=== PATIENT | female | born 1995 | race Caucasian/White ===

== ENCOUNTER 2020-11-14 08:25 | Inpatient (IN) | payer OTHER ==
[2020-11-14] MEDS: ELECTROLYTE-148 SOLN 1,000 ML IV SCH ×3 (09:30→23:30)
[2020-11-14] MEDS ORDERED: PROMETHAZINE HCL 25 MG/1 ML VIAL IVPB ONE (09:38)
[2020-11-14] MEDS ORDERED: BUTORPHANOL TARTRATE 1 MG/ML VIAL IVPB PRN ×2 (09:38)
[2020-11-14 09:59] VITALS: BMI 30.9
[2020-11-14] MEDS ORDERED: DINOPROSTONE 10 MG VAGINAL SUPPOSITORY VG ONE (10:00)
[2020-11-14 10:01] LABS: BASO % 0.4 % (0-2.0); EOS % 0.9 % (0-4.5); HEMATOCRIT 38.3 % (32.4-45.2); LYMPH % 22.7 % (8-40); MCH 27.6 pg (25.7-33.7); MEAN CELL VOLUME 81.2 fl (80-96); MEAN PLT VOLUME 9.5 fl (7.5-11.1); MONO % 7.1 % (3.8-10.2); NEUT % 68.9 % (42.8-82.8); PLATELET COUNT 213 10^3/uL (134-434); RBC 4.72 M/mm3 (3.60-5.2); RDW 15.7 % (11.6-15.6); WHITE BLOOD COUNT 8.6 K/mm3 (4.0-10.0)
[2020-11-14 10:10] LABS: INR 0.92 (0.83-1.09); PROTHROMBIN TIME (PATIENT) 11.3 SEC (9.7-13.0)
[2020-11-14 10:12] LABS: ACTIVATED PTT 26.6 SECONDS (25.2-36.5)
[2020-11-14 10:24] LABS: BLOOD UREA NITROGEN 12.3 mg/dL (7-18)
[2020-11-14 10:27] LABS: CREATININE 0.4 mg/dL (0.55-1.3)
[2020-11-14] MEDS ORDERED: OXYTOCIN 30 UNITS in 0.9% NS 30 UNIT/500 ML INFUS.BAG IVPB ONE (10:39)
[2020-11-14] MEDS ORDERED: OXYTOCIN 30 UNITS in 0.9% NS 30 UNIT/500 ML INFUS.BAG IVPB SCH (10:45)
[2020-11-15] MEDS ORDERED: BUTORPHANOL TARTRATE 2 MG/ML VIAL ONE (03:00)
[2020-11-15] MEDS ORDERED: PROMETHAZINE HCL 25 MG/1 ML VIAL ONE (03:00)
[2020-11-15] MEDS ORDERED: FENTANYL/BUPIVACAINE/NS/PF - PCEA - 50 ML DISP.SYRIN EP ONE ×3 (03:07→12:17)
[2020-11-15] MEDS ORDERED: NALOXONE HCL 0.4 MG/ML VIAL IVPUSH PRN (03:35)
[2020-11-15] MEDS ORDERED: FENTANYL/BUPIVACAINE/NS/PF - PCEA - 50 ML DISP.SYRIN EP SCH (03:45)
[2020-11-15] MEDS: ELECTROLYTE-148 SOLN 1,000 ML IV SCH ×2 (06:50→20:34)
[2020-11-15] MEDS ORDERED: BUPIVACAINE HCL/PF 0.25% (2.5MG/ML) 10 ML VIAL ONE (13:52)
[2020-11-15] MEDS ORDERED: OXYTOCIN 20 UNITS in 0.9% NS 20 UNIT/1,000 ML INFUS.BAG IV ONE ×2 (13:54→15:39)
[2020-11-15] MEDS ORDERED: LIDOCAINE HCL 1% PRESERVATIVE FREE - 30ML VIAL ONE (13:55)
[2020-11-15] MEDS ORDERED: OXYTOCIN 10 UNITS/ML VIAL ONE (14:41)
[2020-11-15] MEDS ORDERED: oxyCODONE HCL 5 MG TABLET PO PRN (14:48)
[2020-11-15] MEDS ORDERED: WITCH HAZEL 50% (TUCKS) 40 PAD/JAR PAD TP PRN (14:48)
[2020-11-15] MEDS ORDERED: BENZOCAINE 20% 57 GM BOTTLE TP PRN (14:48)
[2020-11-15] MEDS ORDERED: BENZOCAINE 28 GM HEMORRHOIDAL OINTMENT TP PRN (14:48)
[2020-11-15] MEDS ORDERED: BISACODYL 10 MG SUPP.RECT RC PRN (14:48)
[2020-11-15] MEDS ORDERED: ACETAMINOPHEN 325 MG TABLET (FP) PO PRN (14:48)
[2020-11-15] MEDS ORDERED: METHYLERGONOVINE MALEATE 0.2 MG/1 ML AMP IM PRN (14:48)
[2020-11-15] MEDS ORDERED: OXYTOCIN 20 UNITS in 0.9% NS 20 UNIT/1,000 ML INFUS.BAG IV SCH (15:00)
[2020-11-15 15:51] LABS: CORD BASE EXCESS -7.1 mmol/L (0-2); CORD HCO3 18.9 mmHg (20-29); CORD PCO2 39.8 mmHg (30-78); CORD pH 7.294 (7.14-7.44)
[2020-11-15] MEDS: IBUPROFEN 600 MG TABLET (FP) PO PRN (16:40)
[2020-11-15] MEDS: FERROUS SO4 325 MG TABLET (FP) PO SCH (16:41)
[2020-11-15] MEDS ORDERED: ZOLPIDEM TARTRATE 5 MG TABLET PO PRN (23:12)
[2020-11-16] MEDS: IBUPROFEN 600 MG TABLET (FP) PO PRN (02:15)
[2020-11-16 07:05] LABS: BASO % 0.3 % (0-2.0); EOS % 0.3 % (0-4.5); HEMATOCRIT 27.2 % (32.4-45.2); HEMOGLOBIN 9.1 GM/dL (10.7-15.3); LYMPH % 19.3 % (8-40); MCH 27.3 pg (25.7-33.7); MCHC 33.3 g/dl (32.0-36.0); MEAN CELL VOLUME 81.9 fl (80-96); MEAN PLT VOLUME 9.3 fl (7.5-11.1); MONO % 6.8 % (3.8-10.2); NEUT % 73.3 % (42.8-82.8); PLATELET COUNT 173 10^3/uL (134-434); RBC 3.32 M/mm3 (3.60-5.2); RDW 15.7 % (11.6-15.6); WHITE BLOOD COUNT 11.4 K/mm3 (4.0-10.0)
[2020-11-16] MEDS: FERROUS SO4 325 MG TABLET (FP) PO SCH ×3 (08:23→17:09)
[2020-11-16] MEDS: PRENATAL VITAMINS W/ FOLIC ACID TABLET (FP) PO SCH (09:32)
[2020-11-16] MEDS ORDERED: FLU VACC QS2021-22(6MOS UP)/PF 60 MCG/0.5 ML SYRINGE IM ONE (10:00)
[2020-11-16] MEDS ORDERED: SENNOSIDES/DOCUSATE COMBO (SENNA PLUS) TABLET (UD) PO PRN (22:00)
[2020-11-17] MEDS: FERROUS SO4 325 MG TABLET (FP) PO SCH ×2 (09:00→14:01)
[2020-11-17] MEDS: PRENATAL VITAMINS W/ FOLIC ACID TABLET (FP) PO SCH (09:27)
[2020-11-17 10:02] VITALS: BP 108/65; PULSE 75; TEMP 98.3
== END 2020-11-17 12:20 | disposition home or self-care (01) | DRG 560 ==
LOC: JLDR 08:25 → J3W 11-15 16:15
PROVIDERS: ADMIT Obstetrics & Gynecology; ATTEND Obstetrics & Gynecology
PROC: 10E0XZZ Delivery of Products of Conception, External Approach (ICD-10-PCS; principal; 2020-11-15)
PROC: 0KQM0ZZ Repair Perineum Muscle, Open Approach (ICD-10-PCS; 2020-11-15)
DX: O34.33 Maternal care for cervical incompetence, third trimester (principal); O99.214 Obesity complicating childbirth; E66.9 Obesity, unspecified; O70.1 Second degree perineal laceration during delivery; Z3A.39 39 weeks gestation of pregnancy; Z37.0 Single live birth
CPT/HCPCS: 36415; 36600; 59409; 80048; 82803; 85025; 85610; 85730; 86780; 86850; 86900; 86901; 90686; C9803; G0008; U0003; U0005

== ENCOUNTER 2023-05-29 20:41 | Emergency (ER) | payer OTHER ==
[2023-05-29 20:51] VITALS: BP 124/74; PULSE 69; RESP 18; TEMP 98.2; BMI 27.1
[2023-05-29 21:03] LABS: EPI CELLS 11 /uL (0-25.1); HYALINE CASTS 0 /uL (0-3.1); PH,URINE 6.5 (5.0-8.0); URINE APPEARANCE CLEAR; URINE BACTERIA 302 /uL (0-1359); URINE BILIRUBIN NEGATIVE (NEGATIVE); URINE COLOR YELLOW; URINE GLUCOSE (UA) NEGATIVE (NEGATIVE); URINE KETONE NEGATIVE (NEGATIVE); URINE LEUK ESTERASE TRACE (NEGATIVE); URINE NITRITE NEGATIVE (NEGATIVE); URINE PROTEIN NEGATIVE (NEGATIVE); URINE RBC 28 /uL (0-23.9); URINE UROBILINOGEN 0.2 mg/dL (0.2-1.0); URINE WBC 14 /uL (0-25.8)
[2023-05-29] MEDS ORDERED: DOXYCYCLINE HYCLATE 100 MG CAPSULE PO ONE (22:18)
[2023-05-29] MEDS ORDERED: ACETAMINOPHEN 500 MG TABLET (FP) ONE (22:18)
[2023-05-29] MEDS: ACETAMINOPHEN 500 MG TABLET (FP) PO ONE (22:23)
[2023-05-29] MEDS: DOXYCYCLINE HYCLATE 100 MG CAPSULE PO ONE (22:23)
[2023-05-29 23:25] LABS: SYPHILIS W/ RPR CONF NON-REACTIVE (NONREACTIVE)
[2023-05-29 23:54] LABS: HIV INTERPRETATION NEGATIVE (NEGATIVE)
== END 2023-05-30 00:53 | disposition home or self-care (01) ==
LOC: JER 20:41
DX: N39.0 Urinary tract infection, site not specified (principal); R10.30 Lower abdominal pain, unspecified
CPT/HCPCS: 36415; 81003; 84703; 86705; 86709; 86780; 86803; 87086; 87340; 87389; 87491; 87517; 87522; 87591; 99284-25

== ENCOUNTER 2023-11-09 22:02 | Emergency (ER) | payer OTHER ==
[2023-11-09 22:08] VITALS: BP 116/81; PULSE 91; RESP 18; TEMP 98.3; BMI 27.0
[2023-11-09 22:52] LABS: BASO % 0.2 % (0-2.0); EOS % 0.7 % (0-4.5); HEMOGLOBIN 13.8 GM/dL (10.7-15.3); LYMPH % 10.8 % (8-40); MCH 28.3 pg (25.7-33.7); MCHC 33.7 g/dl (32.0-36.0); MEAN CELL VOLUME 83.9 fl (80-96); MEAN PLT VOLUME 8.1 fl (7.5-11.1); MONO % 7.2 % (3.8-10.2); NEUT % 81.1 % (42.8-82.8); PLATELET COUNT 279 10^3/uL (134-434); RBC 4.89 M/mm3 (3.60-5.2); RDW 14.1 % (11.6-15.6); WHITE BLOOD COUNT 9.7 K/mm3 (4.0-10.0)
[2023-11-09] MEDS ORDERED: ACETAMINOPHEN INJECTION 100 ML ONE (22:57)
[2023-11-09 22:58] LABS: INR 0.96 (0.83-1.09)
[2023-11-09] MEDS: ACETAMINOPHEN 1000 MG/100 ML BAG IVPB ONE (22:59)
[2023-11-09 23:01] LABS: ACTIVATED PTT 35.3 SECONDS (25.2-36.5)
[2023-11-09 23:15] LABS: EPI CELLS >36 /uL (0-25.1); HYALINE CASTS 2 /uL (0-3.1); URINE APPEARANCE CLEAR; URINE BACTERIA 1807 /uL (0-1359); URINE BILIRUBIN NEGATIVE (NEGATIVE); URINE COLOR YELLOW; URINE GLUCOSE (UA) NEGATIVE (NEGATIVE); URINE KETONE NEGATIVE (NEGATIVE); URINE LEUK ESTERASE TRACE (NEGATIVE); URINE NITRITE NEGATIVE (NEGATIVE); URINE PROTEIN NEGATIVE (NEGATIVE); URINE RBC 51 /uL (0-23.9); URINE WBC 31 /uL (0-25.8)
[2023-11-09 23:30] LABS: POTASSIUM 3.7 mmol/L (3.5-5.1)
[2023-11-09 23:33] LABS: ALBUMIN 3.8 g/dl (3.4-5.0); BLOOD UREA NITROGEN 9.3 mg/dL (7-18); CALCIUM 8.9 mg/dL (8.5-10.1)
[2023-11-09 23:37] LABS: CREATININE 0.4 mg/dL (0.55-1.3)
[2023-11-09 23:38] LABS: BILIRUBIN,TOTAL 0.4 mg/dL (0.2-1); TOT PROT 7.1 g/dl (6.4-8.2)
[2023-11-09] MEDS ORDERED: CEPHALEXIN MONOHYDRATE 500 MG CAPSULE (UD) ONE (23:48)
[2023-11-09] MEDS: CEPHALEXIN MONOHYDRATE 500 MG CAPSULE (UD) PO ONE (23:57)
== END 2023-11-10 01:23 | disposition home or self-care (01) ==
LOC: JER 22:02
PROC: 3E033NZ Introduction of Analgesics, Hypnotics, Sedatives into Peripheral Vein, Percutaneous Approach (ICD-10-PCS; principal; 2023-11-09)
DX: O20.0 Threatened abortion (principal); O23.41 Unspecified infection of urinary tract in pregnancy, first trimester; Z3A.08 8 weeks gestation of pregnancy
CPT/HCPCS: 36415; 76817-TC; 80053; 81003; 84702; 85025; 85610; 85730; 86850; 86900; 86901; 87086; 99284-25; J0131

== ENCOUNTER 2024-06-11 12:21 | Inpatient (IN) | payer OTHER ==
[2024-06-11] MEDS: ELECTROLYTE-148 SOLN 1,000 ML IV SCH (13:00)
[2024-06-11 13:32] VITALS: BMI 32.8
[2024-06-11] MEDS ORDERED: OXYTOCIN 30 UNITS in 0.9% NS 30 UNIT/500 ML INFUS.BAG IVPB ONE (14:08)
[2024-06-11] MEDS: OXYTOCIN 30 UNITS in 0.9% NS 30 UNIT/500 ML INFUS.BAG IVPB SCH (14:10)
[2024-06-11 14:20] LABS: ABSOLUTE IMMATURE GRANULOCYTES 0.06 x10^3/uL (0.0-0.031); BASOPHILS # 0.03 x10^3/uL (0.01-0.08); EOSINOPHIL % 0.3 % (0.7-5.8); EOSINOPHILS # 0.02 x10^3/uL (0.04-0.36); HEMATOCRIT 41.4 % (34.1-44.9); HEMOGLOBIN 13.6 g/dL (11.2-15.7); MCHC 32.9 g/dl (32.2-35.5); MEAN CELL VOLUME 82.5 fl (79.4-94.8); MONOCYTE # 0.49 x10^3/uL (0.24-0.86); MONOCYTE % 6.3 % (4.7-12.5); PLATELET COUNT 185 x10^3/uL (182-369); RDW 15.7 % (12.1-16.5)
[2024-06-11 14:32] LABS: INR 0.95 (0.83-1.09); PROTHROMBIN TIME (PATIENT) 10.4 SEC (9.7-13.0)
[2024-06-11 14:35] LABS: ACTIVATED PTT 29.8 SECONDS (25.2-36.5)
[2024-06-11 14:48] LABS: POTASSIUM 4.1 mmol/L (3.5-5.1)
[2024-06-11 14:50] LABS: CALCIUM 9.4 mg/dL (8.5-10.1)
[2024-06-11 14:51] LABS: BLOOD UREA NITROGEN 11.8 mg/dL (7-18)
[2024-06-11 14:54] LABS: CREATININE 0.6 mg/dL (0.55-1.3)
[2024-06-11 15:44] LABS: HIV INTERPRETATION NEGATIVE (NEGATIVE)
[2024-06-11] MEDS ORDERED: PROMETHAZINE HCL 25 MG/1 ML VIAL ONE (18:08)
[2024-06-11] MEDS ORDERED: BUTORPHANOL TARTRATE 2 MG/ML VIAL ONE (18:08)
[2024-06-11] MEDS: PROMETHAZINE HCL 25 MG/1 ML VIAL IVPB ONE (18:15)
[2024-06-11] MEDS: BUTORPHANOL TARTRATE 2 MG/ML VIAL IVPB ONE (18:15)
[2024-06-11] MEDS ORDERED: OXYTOCIN 20 UNITS in 0.9% NS 20 UNIT/1,000 ML INFUS.BAG IV ONE (19:13)
[2024-06-11] MEDS ORDERED: LIDOCAINE HCL 1% PRESERVATIVE FREE - 30ML VIAL ONE (19:13)
[2024-06-11] MEDS: OXYTOCIN 20 UNITS in 0.9% NS 20 UNIT/1,000 ML INFUS.BAG IV SCH (20:24)
[2024-06-11] MEDS ORDERED: BENZOCAINE 28 GM HEMORRHOIDAL OINTMENT TP PRN (21:43)
[2024-06-11] MEDS ORDERED: ACETAMINOPHEN 325 MG TABLET (FP) PO PRN (21:43)
[2024-06-11] MEDS ORDERED: BENZOCAINE 20% 57 GM BOTTLE TP PRN (21:43)
[2024-06-11] MEDS ORDERED: oxyCODONE HCL 5 MG TABLET PO PRN (21:43)
[2024-06-11] MEDS ORDERED: BISACODYL 10 MG SUPP.RECT RC PRN (21:43)
[2024-06-11] MEDS: METHYLERGONOVINE MALEATE 0.2 MG/1 ML AMP IM PRN (22:17)
[2024-06-11] MEDS: WITCH HAZEL 50% (TUCKS) 40 PAD/JAR PAD TP PRN (23:05)
[2024-06-12] MEDS: IBUPROFEN 600 MG TABLET (FP) PO PRN (04:43)
[2024-06-12 08:34] LABS: ABSOLUTE IMMATURE GRANULOCYTES 0.05 x10^3/uL (0.0-0.031); BASOPHILS # 0.03 x10^3/uL (0.01-0.08); HEMATOCRIT 42.3 % (34.1-44.9); HEMOGLOBIN 13.7 g/dL (11.2-15.7); MCHC 32.4 g/dl (32.2-35.5); MEAN CELL VOLUME 83.3 fl (79.4-94.8); MEAN PLT VOLUME 12.6 fl (9.4-12.3); MONOCYTE # 0.73 x10^3/uL (0.24-0.86); MONOCYTE % 5.6 % (4.7-12.5); PLATELET COUNT 189 x10^3/uL (182-369); RDW 16.1 % (12.1-16.5)
[2024-06-12] MEDS: FERROUS SO4 325 MG TABLET (FP) PO SCH (08:35)
[2024-06-12] MEDS: PRENATAL VITAMINS W/ FOLIC ACID TABLET (FP) PO SCH (09:39)
[2024-06-12 18:37] VITALS: RESP 18
[2024-06-12] MEDS ORDERED: SENNOSIDES/DOCUSATE COMBO (SENNA PLUS) TABLET (UD) PO PRN (22:00)
[2024-06-13 10:06] VITALS: BP 120/80; PULSE 65; TEMP 98
== END 2024-06-13 11:40 | disposition home or self-care (01) | DRG 560 ==
LOC: JLDR 12:21 → J3W 23:35
PROVIDERS: ADMIT Obstetrics & Gynecology; ATTEND Obstetrics & Gynecology
PROC: 10E0XZZ Delivery of Products of Conception, External Approach (ICD-10-PCS; principal; 2024-06-11)
PROC: 0W8NXZZ Division of Female Perineum, External Approach (ICD-10-PCS; 2024-06-11)
PROC: 0HQ9XZZ Repair Perineum Skin, External Approach (ICD-10-PCS; 2024-06-11)
DX: O34.33 Maternal care for cervical incompetence, third trimester (principal); O70.0 First degree perineal laceration during delivery; Z3A.38 38 weeks gestation of pregnancy; Z37.0 Single live birth
CPT/HCPCS: 36415; 59409; 80048; 85025; 85610; 85730; 86780; 86850; 86900; 86901; 87389